=== PATIENT | male | born 1935 | race Caucasian/White ===

== ENCOUNTER 2024-05-26 06:31 | Inpatient (IN) | payer MEDICARE, OTHER ==
[2024-05-26] MEDS: Albuterol/Ipratropium 3.0-0.5 MG/3 ML Neb Soln NEB ONE (07:00)
[2024-05-26 07:06] LABS: MEAN PLATELET VOLUME 8.6 fL (6.7-11.0)
[2024-05-26 07:08] LABS: HEMATOCRIT 33.6 % (38.3-50.1); HEMOGLOBIN 10.8 g/dL (12.9-17.7); MEAN CORPUSCULAR HEMOGLOBIN 27.2 pg (27.0-33.3); PLATELET COUNT,PLT 150 x10(3)uL (117-477); RED BLOOD CELL COUNT 3.95 x10(6)uL (3.90-5.90); RED CELL DISTRIBUTION WIDTH 16.1 % (12.4-15.0); WHITE BLOOD CELL COUNT,WBC 9.8 x10-3/uL (3.2-10.1)
[2024-05-26 07:11] LABS: BLOOD UREA NITROGEN,BUN 25 mg/dL (7-18); BUN/CREATININE RATIO 22.7 (9-20); CARBON DIOXIDE,CO2 26 mmol/L (21-32); CHLORIDE,CL 102 mmol/L (100-110); CREATININE 1.1 mg/dL (0.70-1.30); ESTIMATED GFR 64 mL/min (>60); GLUCOSE RANDOM 254 mg/dL (80-116); POTASSIUM,K 4.5 mmol/L (3.5-5.3); SODIUM,NA 139 mmol/L (135-145)
[2024-05-26 07:16] LABS: ALANINE AMINOTRANSFERASE,ALT 32 U/L (12-36); ALBUMIN 3.9 g/dL (2.9-4.5); ALKALINE PHOSPHATASE 57 IU/L (56-112); ASPARTATE AMNIOTRANSFERASE,AST 34 IU/L (5-25); BILIRUBIN TOTAL 1.1 mg/dL (0.1-1.3); PROTEIN TOTAL,TP 7.9 g/dL (6.0-8.0)
[2024-05-26 07:23] LABS: ANISOCYTOSIS FEW; EOSINOPHILS PERCENT MAN 1 % (0-5); LYMPHOCYTES PERCENT MAN 7 % (13-37); MONOCYTES PERCENT MAN 4 % (4-12); SEG NEUTROPHILS PERCENT MAN 88 % (46-82)
[2024-05-26 07:24] LABS: TROPONIN I 21.4 pg/mL (4.0-60.3)
[2024-05-26 07:29] LABS: D-DIMER QUANTITATIVE 2.87 mg/LFEU (0.0-0.59); INR 3.01 (1.00-1.24); PROTHROMBIN TIME 28.6 sec (9.0-11.1)
[2024-05-26 07:59] LABS: LACTIC ACID 2.1 mmol/L (0.4-2.0)
[2024-05-26] MEDS: Iopamidol 755 Mg/ML 100 ML Bottle IV ONE (08:04)
[2024-05-26] MEDS: cefTRIAXone 2 GM Vial IVPUSH ONE (08:21)
[2024-05-26] MEDS: Azithromycin 500 MG in Sodium Chloride 0.9% 250 ML IV ONE (08:22)
[2024-05-26] MEDS ORDERED: Glucagon,Human Recombinant 1 MG Vial IM PRN (13:40)
[2024-05-26] MEDS ORDERED: 50% Dextrose in Water 50 ML Syringe IVPUSH PRN (13:40)
[2024-05-26] MEDS ORDERED: Acetaminophen 650 MG Supp RECTAL PRN (13:53)
[2024-05-26] MEDS ORDERED: Acetaminophen 325 MG Tab PO PRN (13:53)
[2024-05-26] MEDS: Diltiazem 240 MG Cap.ER PO SCH (14:46)
[2024-05-26] MEDS: Magnesium Oxide 400 MG Tab PO SCH (14:46)
[2024-05-26] MEDS: Sodium Chloride 0.9% 1,000 ML IV SCH (15:01)
[2024-05-26] MEDS: Warfarin 2.5 MG Tab PO ONE (16:39)
[2024-05-26] MEDS: Insulin Lispro 100 Unit/ML 3 ML KwikPen SUBCUT SCH (17:35)
[2024-05-26] MEDS: Gabapentin 100 MG Cap PO SCH (20:56)
[2024-05-26] MEDS: Timolol Maleate 0.5% Ophth Soln 5 ML Bottle EYEBOTH SCH (20:57)
[2024-05-26] MEDS: Rosuvastatin 20 MG Tab PO SCH (20:57)
[2024-05-26] MEDS: Metoprolol Succinate 100 MG Tab.ER PO SCH (20:58)
[2024-05-26] MEDS: Latanoprost 0.005% Ophth Soln 2.5 ML Bottle EYEBOTH SCH (21:00)
[2024-05-27 06:39] LABS: BASOPHILS PERCENT AUTO 0.3 % (0.3-3.8); EOSINOPHILS PERCENT AUTO 0.8 % (0.1-6.8); HEMATOCRIT 28.2 % (38.3-50.1); HEMOGLOBIN 9.1 g/dL (12.9-17.7); LYMPHOCYTES ABSOLUTE AUTO 0.6 x10-3/uL (0.5-4.5); LYMPHOCYTES PERCENT AUTO 12.2 % (15.8-45.3); MEAN CORPUSCULAR HEMOGLOBIN 27.4 pg (27.0-33.3); MEAN CORPUSCULAR HGB CONC 32.3 g/dL (28.7-35.3); MEAN CORPUSCULAR VOLUME 84.8 fL (80.8-98.7); MEAN PLATELET VOLUME 8.8 fL (6.7-11.0); MONOCYTES ABSOLUTE AUTO 0.3 x10-3/uL (0.0-1.2); MONOCYTES PERCENT AUTO 5.4 % (5.5-15.2); NEUTROPHILS ABSOLUTE AUTO 4.2 x10-3/uL (1.7-6.9); NEUTROPHILS PERCENT AUTO 81.3 % (40.3-71.8); PLATELET COUNT,PLT 98 x10(3)uL (117-477); RED CELL DISTRIBUTION WIDTH 16.1 % (12.4-15.0); WHITE BLOOD CELL COUNT,WBC 5.2 x10-3/uL (3.2-10.1)
[2024-05-27 06:43] LABS: INR 3.11 (1.00-1.24); PROTHROMBIN TIME 29.4 sec (9.0-11.1)
[2024-05-27 06:48] LABS: A/G RATIO 0.9; ALANINE AMINOTRANSFERASE,ALT 22 U/L (12-36); ALBUMIN 3.1 g/dL (2.9-4.5); ALKALINE PHOSPHATASE 44 IU/L (56-112); ASPARTATE AMNIOTRANSFERASE,AST 24 IU/L (5-25); BILIRUBIN TOTAL 0.9 mg/dL (0.1-1.3); BLOOD UREA NITROGEN,BUN 15 mg/dL (7-18); BUN/CREATININE RATIO 16.7 (9-20); CALCIUM 8.3 mg/dL (8.6-10.2); CARBON DIOXIDE,CO2 29 mmol/L (21-32); CHLORIDE,CL 105 mmol/L (100-110); CREATININE 0.9 mg/dL (0.70-1.30); EST CRCL DRUG DOSING (CG) 53.83 mL/min; ESTIMATED GFR 82 mL/min (>60); GLUCOSE RANDOM 133 mg/dL (80-116); POTASSIUM,K 4.2 mmol/L (3.5-5.3); PROTEIN TOTAL,TP 6.6 g/dL (6.0-8.0); SODIUM,NA 140 mmol/L (135-145)
[2024-05-27 07:13] LABS: RED BLOOD CELL COUNT 3.32 x10(6)uL (3.90-5.90)
[2024-05-27] MEDS ORDERED: cefTRIAXone 2 GM in Sodium Chloride 0.9% 50 ML IV SCH (08:00)
[2024-05-27] MEDS: Aspirin 81 MG Tab.Chew PO SCH (08:00)
[2024-05-27] MEDS: Multivitamin Tab PO SCH (08:00)
[2024-05-27] MEDS: Ferrous Sulfate 325 MG Tab PO SCH (08:00)
[2024-05-27] MEDS: cefTRIAXone 2 GM Vial IVPUSH SCH (08:06)
[2024-05-27] MEDS: Azithromycin 500 MG in Sodium Chloride 0.9% 250 ML IV SCH (08:44)
[2024-05-27] MEDS: Warfarin** 1 MG TABLET PO ONE (16:36)
[2024-05-27 17:14] LABS: MRSA DETECTION BY PCR Not Detected
[2024-05-28 06:54] LABS: BASOPHILS PERCENT AUTO 0.5 % (0.3-3.8); EOSINOPHILS ABSOLUTE AUTO 0.1 x10-3/uL (0.0-0.6); EOSINOPHILS PERCENT AUTO 2.9 % (0.1-6.8); HEMATOCRIT 29.3 % (38.3-50.1); HEMOGLOBIN 9.3 g/dL (12.9-17.7); LYMPHOCYTES ABSOLUTE AUTO 0.8 x10-3/uL (0.5-4.5); LYMPHOCYTES PERCENT AUTO 18.8 % (15.8-45.3); MEAN CORPUSCULAR HGB CONC 31.7 g/dL (28.7-35.3); MEAN CORPUSCULAR VOLUME 85.1 fL (80.8-98.7); MEAN PLATELET VOLUME 8.8 fL (6.7-11.0); MONOCYTES ABSOLUTE AUTO 0.3 x10-3/uL (0.0-1.2); MONOCYTES PERCENT AUTO 7.1 % (5.5-15.2); NEUTROPHILS ABSOLUTE AUTO 3.1 x10-3/uL (1.7-6.9); NEUTROPHILS PERCENT AUTO 70.7 % (40.3-71.8); PLATELET COUNT,PLT 106 x10(3)uL (117-477); RED BLOOD CELL COUNT 3.44 x10(6)uL (3.90-5.90); RED CELL DISTRIBUTION WIDTH 16.2 % (12.4-15.0); WHITE BLOOD CELL COUNT,WBC 4.5 x10-3/uL (3.2-10.1)
[2024-05-28 06:57] LABS: BLOOD UREA NITROGEN,BUN 14 mg/dL (7-18); BUN/CREATININE RATIO 15.6 (9-20); CALCIUM 8.5 mg/dL (8.6-10.2); CARBON DIOXIDE,CO2 30 mmol/L (21-32); CHLORIDE,CL 105 mmol/L (100-110); CREATININE 0.9 mg/dL (0.70-1.30); EST CRCL DRUG DOSING (CG) 53.83 mL/min; ESTIMATED GFR 82 mL/min (>60); GLUCOSE RANDOM 131 mg/dL (80-116); POTASSIUM,K 4.3 mmol/L (3.5-5.3); SODIUM,NA 140 mmol/L (135-145)
[2024-05-28 06:58] LABS: INR 3.22 (1.00-1.24); PROTHROMBIN TIME 30.4 sec (9.0-11.1)
[2024-05-28] MEDS ORDERED: Sodium Chloride 0.65% Nasal Spray 45 ML Bottle NAS PRN (11:48)
[2024-05-28] MEDS ORDERED: Fluticasone NASAL Spray 16 GM Bottle NASBOTH SCH (12:00)
[2024-05-29 06:12] LABS: BASOPHILS PERCENT AUTO 0.6 % (0.3-3.8); EOSINOPHILS ABSOLUTE AUTO 0.2 x10-3/uL (0.0-0.6); EOSINOPHILS PERCENT AUTO 3.9 % (0.1-6.8); HEMOGLOBIN 9.6 g/dL (12.9-17.7); LYMPHOCYTES ABSOLUTE AUTO 0.7 x10-3/uL (0.5-4.5); MEAN CORPUSCULAR HEMOGLOBIN 27.1 pg (27.0-33.3); MEAN CORPUSCULAR HGB CONC 31.9 g/dL (28.7-35.3); MEAN CORPUSCULAR VOLUME 85.2 fL (80.8-98.7); MEAN PLATELET VOLUME 8.8 fL (6.7-11.0); MONOCYTES ABSOLUTE AUTO 0.4 x10-3/uL (0.0-1.2); NEUTROPHILS ABSOLUTE AUTO 3.6 x10-3/uL (1.7-6.9); NEUTROPHILS PERCENT AUTO 72.5 % (40.3-71.8); PLATELET COUNT,PLT 122 x10(3)uL (117-477); RED BLOOD CELL COUNT 3.52 x10(6)uL (3.90-5.90); RED CELL DISTRIBUTION WIDTH 16.2 % (12.4-15.0)
[2024-05-29 06:29] LABS: BLOOD UREA NITROGEN,BUN 14 mg/dL (7-18); BUN/CREATININE RATIO 15.6 (9-20); CALCIUM 8.6 mg/dL (8.6-10.2); CARBON DIOXIDE,CO2 30 mmol/L (21-32); CHLORIDE,CL 105 mmol/L (100-110); CREATININE 0.9 mg/dL (0.70-1.30); EST CRCL DRUG DOSING (CG) 53.83 mL/min; ESTIMATED GFR 82 mL/min (>60); GLUCOSE RANDOM 140 mg/dL (80-116); POTASSIUM,K 4.3 mmol/L (3.5-5.3); SODIUM,NA 141 mmol/L (135-145)
[2024-05-29 06:40] LABS: INR 2.57 (1.00-1.24); PROTHROMBIN TIME 24.8 sec (9.0-11.1)
[2024-05-29] MEDS: Sodium Chloride 0.9% 10 ML Syringe FLUSH PRN (07:48)
[2024-05-29] MEDS: Warfarin 2.5 MG Tab PO ONE (16:17)
[2024-05-30 06:41] LABS: BASOPHILS PERCENT AUTO 0.9 % (0.3-3.8); EOSINOPHILS ABSOLUTE AUTO 0.2 x10-3/uL (0.0-0.6); EOSINOPHILS PERCENT AUTO 4.5 % (0.1-6.8); HEMATOCRIT 31.2 % (38.3-50.1); LYMPHOCYTES ABSOLUTE AUTO 0.8 x10-3/uL (0.5-4.5); LYMPHOCYTES PERCENT AUTO 17.5 % (15.8-45.3); MEAN CORPUSCULAR HEMOGLOBIN 27.3 pg (27.0-33.3); MEAN CORPUSCULAR HGB CONC 32.2 g/dL (28.7-35.3); MEAN CORPUSCULAR VOLUME 84.7 fL (80.8-98.7); MEAN PLATELET VOLUME 8.5 fL (6.7-11.0); MONOCYTES ABSOLUTE AUTO 0.4 x10-3/uL (0.0-1.2); MONOCYTES PERCENT AUTO 8.8 % (5.5-15.2); NEUTROPHILS PERCENT AUTO 68.3 % (40.3-71.8); PLATELET COUNT,PLT 135 x10(3)uL (117-477); RED BLOOD CELL COUNT 3.68 x10(6)uL (3.90-5.90); WHITE BLOOD CELL COUNT,WBC 4.4 x10-3/uL (3.2-10.1)
[2024-05-30 06:47] LABS: BLOOD UREA NITROGEN,BUN 12 mg/dL (7-18); BUN/CREATININE RATIO 13.3 (9-20); CALCIUM 8.9 mg/dL (8.6-10.2); CARBON DIOXIDE,CO2 31 mmol/L (21-32); CHLORIDE,CL 105 mmol/L (100-110); CREATININE 0.9 mg/dL (0.70-1.30); EST CRCL DRUG DOSING (CG) 53.83 mL/min; ESTIMATED GFR 82 mL/min (>60); GLUCOSE RANDOM 151 mg/dL (80-116); SODIUM,NA 142 mmol/L (135-145)
[2024-05-30 06:48] LABS: INR 2.15 (1.00-1.24)
[2024-05-30] MEDS: Iopamidol 755 Mg/ML 100 ML Bottle IV SCH (09:45)
[2024-05-30] MEDS: Warfarin 5 MG Tab PO ONE (15:37)
[2024-05-30 16:10] LABS: STREPTOCOCCUS PNEUMONIAE AG,UR Negative (Negative)
[2024-05-30] MEDS ORDERED: Insulin Lispro 100 Unit/ML 3 ML KwikPen SUBCUT ONE (16:39)
[2024-05-31 00:11] LABS: LEGIONELLA PNEUMOPHILA AG,URN Negative (Negative)
== END 2024-05-30 16:40 | DRG 871 ==
LOC: FB.ED 06:31 → FB.MS 09:30
PROVIDERS: ADMIT Internal Medicine; ATTEND Internal Medicine
DX: A41.9 Sepsis, unspecified organism (principal); J18.9 Pneumonia, unspecified organism; J96.01 Acute respiratory failure with hypoxia; I48.11 Longstanding persistent atrial fibrillation; R04.2 Hemoptysis; Z66 Do not resuscitate; I25.10 Atherosclerotic heart disease of native coronary artery without angina pectoris; I10 Essential (primary) hypertension; E78.5 Hyperlipidemia, unspecified; E11.39 Type 2 diabetes mellitus with other diabetic ophthalmic complication; H42 Glaucoma in diseases classified elsewhere; Z79.82 Long term (current) use of aspirin; Z79.899 Other long term (current) drug therapy; Z79.2 Long term (current) use of antibiotics; Z79.01 Long term (current) use of anticoagulants; Z95.2 Presence of prosthetic heart valve; Z79.84 Long term (current) use of oral hypoglycemic drugs; Z95.5 Presence of coronary angioplasty implant and graft; Z87.891 Personal history of nicotine dependence
CPT/HCPCS: 36415; 71045; 71270; 71275; 80048; 80053; 82947; 83605; 83880; 84484; 85025; 85379; 85610; 86140; 87040; 87070; 87205; 87449; 87486; 87581; 87633; 87641; 87798; 87899; 93005; 93010; 96365; 96375; 97161-GP; 97165-GO; 97530-GO; 99222; 99232; 99238; 99285; 99285-25; A9270-GY; J0456; J0696; J1815; J3490; J7030; J7050; J7620; Q9967; U0002